=== PATIENT | female | born 1995 | race Caucasian/White ===

== ENCOUNTER 2023-03-18 15:07 | Outpatient (CLI) | payer OTHER, SELFPAY ==
[2023-03-18 15:29] VITALS: BP 134/91; PULSE 68; RESP 16; TEMP 36.7
[2023-03-18 15:44] VITALS: BP 146/84; PULSE 78
[2023-03-18 15:59] VITALS: BP 144/95; PULSE 86
[2023-03-18] MEDS: ACETAMINOPHEN 500 MG TABLET 1000 MG PO (16:10)
[2023-03-18] MEDS: 0.45 % SODIUM CHLORIDE 1000 ML 1,000 ML 500 ML IV (16:18)
[2023-03-18 16:26] LABS: Hematocrit 27.5 % (33.0-51.0); Hemoglobin* 8.7 gm/dL (12.0-16.0); Mean Corpuscular HGB Conc 32 gm/dL (32-36); Mean Corpuscular Hemoglobin 26 pg (26-34); Mean Corpuscular Volume 83 fL (80-100); Platelet Count* 340 K/uL (140-440); Red Blood Count 3.31 m/uL (4.00-5.20); White Blood Count* 17.85 K/uL (4.50-11.00)
[2023-03-18 16:31] LABS: Slide Review Reflex No
[2023-03-18 16:40] LABS: Alanine Aminotransferase* 15 U/L (4-35); Aspartate Amino Transferase* 31 U/L (12-35); Blood Urea Nitrogen* 5 mg/dL (5-24); Creatinine* 0.5 mg/dL (0.5-1.5); Estimated Glomerular Filt Rate 133 ml/min
[2023-03-18 17:16] VITALS: BP 137/90; PULSE 71
[2023-03-18 17:30] VITALS: BP 142/95; PULSE 71
--- NOTE | 2023-03-18 19:02 | PC.OBNST ---
NST Note NST Note Start: 03/18/23 15:31 Freq: ONCE Status: Active Protocol: Document 03/18/23 18:30 STEVIE (Rec: 03/18/23 19:01 STEVIE [id number]) NST Note 1 Para (# of births) 0 EDC 04/19/23 Gestational Age In Weeks & Days 35 Weeks & 3 Days High Risk Factors High Blood Pressure - Gestational Patient Presented with Complaint(s) of Headache,Other Other Complaints Elevated blood pressures at home Reactive Yes Appropriate for Gestational Age Yes JUSTINE Hui RNC Date 03/18/23 Reactive Yes Appropriate for Gestational Age Yes JUSTINE Holloway RNC Date 03/18/23 OB NST charge Yes Complete NST Note via Write Note Yes The provider's electronic signature indicates the NST is reactive/appropriate for gestational age. *Note to provider: If an addendum is required, open the patient's chart and click on the note under the Nurse/Allied Health tab.
[2023-03-19 14:14] LABS: Strep B DNA Probe Negative (Negative); Strep B Susceptibility Needed? No
== END 2023-03-18 18:45 | disposition home or self-care (01) ==
LOC: OB OUT 15:12 → OB 15:13
PROVIDERS: PCP Family Medicine; Visit Provider Family Medicine
DX: O13.3 Gestational [pregnancy-induced] hypertension without significant proteinuria, third trimester (principal); Z3A.35 35 weeks gestation of pregnancy
CPT/HCPCS: 36415; 59025; 82565; 84450; 84460; 84520; 85027; 87081; 87653; 99213; A9270

== ENCOUNTER 2023-03-28 17:11 | Inpatient (IN) | payer OTHER, SELFPAY ==
[2023-03-28 17:21] VITALS: PULSE 88; O2SAT 98
[2023-03-28 17:23] VITALS: RESP 16; TEMP 37.2
[2023-03-28 17:34] VITALS: BP 142/86; PULSE 81
[2023-03-28 17:44] VITALS: BP 140/88; PULSE 80
[2023-03-28 17:46] VITALS: BMI 30.4
[2023-03-28 18:25] LABS: Amnisure Rom* Negative
--- NOTE | 2023-03-28 18:42 | PM.OBHPLI ---
OB - H&P: HPI Labor/Induction History of Present Illness Time Seen by Provider: 18:30 Date Seen: 03/28/23 Chief Complaint: The patient is a 27 year old 1 para 0 at 36 6/7 weeks gestation by LMP c/w 9wk US, who presents for induction for preeclampsia. Chief complaint: OB IN : 1 Para: 0 Date of last menstrual period: 07/13/22 Estimated date of delivery: 04/19/23 Gestational age based on last menstrual period: 36 Indications for induction: pre-eclampsia Narrative: Tosin Leung is a 27 year old 1 para 0 at 36 6/7 weeks gestation by LMP c/w 9wk US, who presents for induction for preeclampsia. Preeclampsia diagnosed around 35wks. Has been getting biweekly BPP, labs and office visits. BP's at home 140-150's/90's. No headache. No ctxs. occ tightening. No gush of fluid but noticed underwear little wet at times last couple days. not sure if discharge. no bleeding. +FM. +edema, better then when was working. History of Present Dating criteria: based on LMP care: good care Ultrasounds: normal mid trimester US complications comment: +covid 01/16/23, followup growth US wnl. Labs Blood type: A (+) positive Rubella: immune RPR/VDLR: nonreactive GBS status: negative HBsAG: negative Meds Home Medications and Allergies Allergies Allergy/AdvReac Type Severity Reaction Status Date / Time CT contrast dye Allergy Severe Anaphylaxis Uncoded 03/18/23 15:42 OB - H&P: Exam Physical Exam: Vital signs: Temp Pulse Resp BP Pulse Ox 99 F 80 16 140/88 H 98 03/28/23 17:23 03/28/23 17:44 03/28/23 17:23 03/28/23 17:44 03/28/23 17:21 Constitutional: Constitutional: no acute distress and cooperative Routine HEENT Exam: Head: Present normal inspection Eye: Present normal appearance Routine Respiratory Exam: Respiratory: Present CTA bilaterally; Absent crackles or rales Routine Cardiovascular Exam: Cardiovascular: RRR Detailed Labor and Delivery Exam: Patient Gravid: Yes Dilation (cm): 1 Effacement (%): 70 Cervix position: posterior Consistency: medium Fetus (Single): Station: -3 Amniotic Membrane Status: intact Heart Rate Baseline: 130 Monitor Accelerations: Present Monitor Decelerations: None Senior Care Variability: Moderate (6-25) Routine Extremities Exam: Extremities: Present pedal edema (1-2+ nonpitting edema) Routine Neurological Exam: Comments: 2/4 DTR's, no clonus OB - Problem Based A/P Additional Plan (1) Preeclampsia: Status: Acute (2) Term : Status: Acute Plan -preeclamptic labs on admit -discussed induction and various techniques and variability in induction courses. Cook catheter placed. Low dose pitocin protocol later tonight. -known GBS negative. -hx genital HSV in past, no outbreaks with . no current lesions. -on venlafaxine, will continue. Delivery/Labor/Induction Plan Plan: induction Induction method: Intracervical balloon catheter
[2023-03-28 18:46] LABS: Basophils Percent Auto 0.3 % (0.0-3.0); Eosinophils Percent Auto 0.5 % (0.0-7.0); Hematocrit 29.4 % (33.0-51.0); Hemoglobin* 9.1 gm/dL (12.0-16.0); Immature Granulocytes Pct Auto 1.9 %; Lymphocytes Percent Auto 19.5 % (20-44); Mean Corpuscular HGB Conc 31 gm/dL (32-36); Mean Corpuscular Hemoglobin 27 pg (26-34); Mean Corpuscular Volume 89 fL (80-100); Monocytes Percent Auto 7.5 % (0.0-11.0); Neutrophils Percent Auto 70.3 % (42.0-72.0); Platelet Count* 214 K/uL (140-440); RDW Coefficient of Variation % 21.7 % (11.5-15.5); Red Blood Count 3.32 m/uL (4.00-5.20)
[2023-03-28 18:48] LABS: Slide Review Reflex No
[2023-03-28 19:06] LABS: Alanine Aminotransferase* 16 U/L (4-35); Aspartate Amino Transferase* 30 U/L (12-35); Blood Urea Nitrogen* 7 mg/dL (5-24); Creatinine* 0.5 mg/dL (0.5-1.5); Est. Creatinine Clearance* 142.28; Estimated Glomerular Filt Rate 133 ml/min
[2023-03-28 19:16] VITALS: BP 138/91; PULSE 68; PULSE 70; RESP 16; TEMP 37.1; O2SAT 99
[2023-03-28] MEDS: VENLAFAXINE ER 75 MG CAPSULE 150 MG PO (21:22)
[2023-03-28] MEDS: LACTATED RINGERS 1000 ML 1,000 ML 125 ML IV (21:22)
[2023-03-28] MEDS: OXYTOCIN 30 unit/500 ML in NS 30 UNIT/500 ML BAG IVPB (21:24)
[2023-03-28 22:22] VITALS: BP 139/87; PULSE 70; RESP 16; TEMP 36.8
[2023-03-29] VITALS (123 sets, daily range): BP systolic 76–177; BP diastolic 41–120; PULSE 60–111; RESP 16–18; TEMP 36.6–37.1; O2SAT 97–100
[2023-03-29] MEDS: HYDRALAZINE HCL 20 MG/ML inj IVP ×6 (03:00→16:48)
[2023-03-29] MEDS: MAGNESIUM IV 4 GM/100 ML PIGGYBACK IVPB (03:13)
[2023-03-29 06:15] LABS: Alanine Aminotransferase* 18 U/L (4-35); Aspartate Amino Transferase* 46 U/L (12-35); Blood Urea Nitrogen* 6 mg/dL (5-24); Creatinine* 0.5 mg/dL (0.5-1.5); Est. Creatinine Clearance* 142.28; Estimated Glomerular Filt Rate 133 ml/min
[2023-03-29 06:16] LABS: Hematocrit 30.1 % (33.0-51.0); Hemoglobin* 9.5 gm/dL (12.0-16.0); Mean Corpuscular HGB Conc 32 gm/dL (32-36); Mean Corpuscular Hemoglobin 28 pg (26-34); Mean Corpuscular Volume 88 fL (80-100); Platelet Count* 203 K/uL (140-440); Red Blood Count 3.41 m/uL (4.00-5.20)
[2023-03-29 06:17] LABS: Basophils Percent Auto 0.6 % (0.0-3.0); Eosinophils Percent Auto 0.9 % (0.0-7.0); Lymphocytes Percent Auto 26.9 % (20-44); Monocytes Percent Auto 7.2 % (0.0-11.0); Slide Review Reflex No
[2023-03-29] MEDS: LACTATED RINGERS 1000 ML 1,000 ML 75 ML IV (06:41)
--- NOTE | 2023-03-29 06:51 | P.OBPN_ITS ---
Subjective Time Seen by Provider: 06:51 Date Seen: 03/29/23 Narrative: pt developed severe preeclampsia by BP criteria overnight. Required 2 doses hydralazine (has asthma, pulse low 60), magnesium started, labs repeated. This morning reports feeling good overall. says did not sleep much. little headache now, started after mag she says. no vision changes. feels cramping. Pitocin was turned off overnight due to regular contractions and increased BP per RN. Objective Vital Signs: Last Vital Signs Temp 98.7 F 03/29/23 02:10 Pulse 68 03/29/23 06:49 Resp 16 03/29/23 02:10 BP 161/97 H 03/29/23 06:49 Pulse Ox 97 03/29/23 03:23 Pelvic Exam Dilation (cm): 4 Effacement (%): 70 Station: -3 Contractions Monitor mode: External Contraction Frequency: q2-4 Contraction pattern: Regular Assessment Station: -3 Heart Rate Baseline: 120 Correction Variability: Moderate (6-25) Monitor Accelerations: Present Monitor Decelerations: None Plan Plan: G1 at 37wks admitted last night for induction due to preeclampsia, overnight meeting severe preeclampsia due to bp criteria. -continue induction, restart pitocin. -Labs [id number], last labs ALT little elevated from prior but not >2x's normal. continue check [id number]. -treat bps as needed -discussed all above with pt, all ?'s answered.
[2023-03-29] MEDS: ACETAMINOPHEN 500 MG TABLET 1000 MG PO ×3 (07:19→23:56)
[2023-03-29 09:19] LABS: Hematocrit 32.2 % (33.0-51.0); Hemoglobin* 10.3 gm/dL (12.0-16.0); Mean Corpuscular HGB Conc 32 gm/dL (32-36); Mean Corpuscular Hemoglobin 28 pg (26-34); Mean Corpuscular Volume 89 fL (80-100); Platelet Count* 216 K/uL (140-440); Red Blood Count 3.64 m/uL (4.00-5.20); White Blood Count* 14.86 K/uL (4.50-11.00)
[2023-03-29 09:22] LABS: Slide Review Reflex No
[2023-03-29 09:36] LABS: Alanine Aminotransferase* 40 U/L (4-35); Aspartate Amino Transferase* 42 U/L (12-35); Blood Urea Nitrogen* 5 mg/dL (5-24); Creatinine* 0.5 mg/dL (0.5-1.5); Est. Creatinine Clearance* 142.28; Estimated Glomerular Filt Rate 133 ml/min
--- NOTE | 2023-03-29 13:32 | PM.OBPNL ---
Subjective Time Seen by Provider: 13:12 Date Seen: 03/29/23 Narrative: pt reports mild tightening. no pain. headache resolve but feels like coming back--very mild she says. Objective Vital Signs: Last Vital Signs Temp 98.2 F 03/29/23 11:00 Pulse 88 03/29/23 13:19 Resp 16 03/29/23 02:10 BP 171/91 H 03/29/23 13:19 Pulse Ox 99 03/29/23 07:27 Comments: labs with platelets and creatinine nml. AST last 42 (prev 46), ALT 40 (prev 18) Pelvic Exam Dilation (cm): 5 Effacement (%): 70 Station: -3 Contractions Monitor mode: External Contraction pattern: Irregular Contraction intensity: Mild Pitocin Rate (mU/min): 7 Assessment Assessment: induction ongoing Station: -2 Amniotic Membrane Status: AROM (AROM with clear fluid at 1314) Heart Rate Baseline: 120 Clinical Documentation Spec Variability: Moderate (6-25) Monitor Accelerations: Present Monitor Decelerations: None Plan Plan: Induction at 37wks for preeclampsia, now severe preeclampsia. -Cook overnight. Currently on pitocin. -labs [id number] -on magnesium -hydralazine protocol for BP's in severe range -Discussed AROm and pt in agreement, performed with clear fluid.
[2023-03-29 15:20] LABS: Hemoglobin* 10.4 gm/dL (12.0-16.0); Mean Corpuscular HGB Conc 32 gm/dL (32-36); Mean Corpuscular Hemoglobin 28 pg (26-34); Mean Corpuscular Volume 89 fL (80-100); Platelet Count* 255 K/uL (140-440); Red Blood Count 3.72 m/uL (4.00-5.20); White Blood Count* 16.03 K/uL (4.50-11.00)
[2023-03-29 15:34] LABS: Slide Review Reflex No
[2023-03-29 15:40] LABS: Alanine Aminotransferase* 18 U/L (4-35); Aspartate Amino Transferase* 44 U/L (12-35); Creatinine* 0.4 mg/dL (0.5-1.5); Est. Creatinine Clearance* 177.85; Estimated Glomerular Filt Rate 141 ml/min
[2023-03-29 15:41] LABS: Blood Urea Nitrogen* 4 mg/dL (5-24)
[2023-03-29] MEDS: LACTATED RINGERS 1000 ML 1,000 ML 500 ML IV (16:56)
--- NOTE | 2023-03-29 17:20 | PM.OBPNL ---
Subjective Time Seen by Provider: 16:30 Date Seen: 03/29/23 Narrative: Ctxs stronger and pt requests epidural. Has headache. Objective Vital Signs: Last Vital Signs Temp 98 F 03/29/23 17:04 Pulse 100 03/29/23 17:04 Resp 16 03/29/23 02:10 BP 137/78 03/29/23 17:04 Pulse Ox 99 03/29/23 07:27 Pelvic Exam Comments: 90/0 per RN Contractions Monitor mode: External Contraction pattern: Regular Assessment Assessment: active labor Station: 0 Amniotic Membrane Status: AROM (AROM with clear fluid at 1314) Heart Rate Baseline: 130 Android Platform Developer Variability: Moderate (6-25) Monitor Accelerations: Present Monitor Decelerations: None Plan Plan: Induction for preeclampsia, now severe due to BP -anesthesia notified and will place epidural -labs stable. continue [id number] -on magnesium -treat Bps as needed -continue current
[2023-03-29] MEDS: ONDANSETRON 2 MG/ML inj 4 MG IV (17:41)
[2023-03-29] MEDS: SODIUM CHLORIDE 0.9 % (FLUSH) 10 ML SYRINGE IVF (17:41)
[2023-03-29] MEDS: LIDOCAINE 2% (PF) 5 ML VIAL EPIDURAL (17:52)
[2023-03-29] MEDS: ROPIVACAINE 0.2% 100 ml 100 ML 12 MG EPIDURAL (17:52)
[2023-03-29] MEDS: fentaNYL 250 MCG/5 ML inj 100 MCG EPIDURAL (18:05)
[2023-03-29] MEDS: PHENYLEPHRINE 100 MCG/ML SYRINGE IVP ×3 (18:05→18:25)
--- NOTE | 2023-03-29 18:05 | P.ANBPRC_ITS ---
[facility] Medical History (Updated 03/28/23 @ 18:51 by Mari Sam DO) Anxiety ?F41.9 - Anxiety disorder, unspecified (ICD-10) ADHD ?F90.9 - Attention-deficit hyperactivity disorder, unspecified type (ICD-10) Genital herpes ?A60.00 - Herpesviral infection of urogenital system, unspecified (ICD-10) Family History (Updated 03/28/23 @ 19:43 by Gilma Zabala RN) Other Genital herpes Social History What is your current living situation?: I presently have a place to live Problems where you live: no known problems In the past 12 months, utilities in danger of being shut off: no In past 12 months, lack of transportation kept you from medical appts, meetings, work, or getting things needed for daily living: no In the past 12 mos, have been you worried that your food would run out before you had money to buy more?: never true In the past 12 mos, the food you bought just didn't last and you didn't have money to buy more?: never true Smoking Status: Current some day smoker How often does anyone, including family, friends and others, physically hurt you : never How often does anyone, including family, friends and others, insult or talk down to you: never How often does anyone, including family, friends and others, threaten you with harm: never How often does anyone, including family, friends and others, scream or curse at you: never Meds Home Medications and Allergies Home Medications Medication Instructions Recorded Confirmed Type acyclovir 250 mg 500 mg .Route PRN HSV 03/28/23 03/28/23 History docosahexaenoic acid 200 mg 200 mg PO DAILY 03/28/23 03/28/23 History capsule ( DHA) ferrous sulfate 137 mg (45 mg 140 mg PO DAILY anemia 03/28/23 03/28/23 History iron) tablet,extended release (Slow Fe) venlafaxine 150 mg 150 mg PO QHS 03/28/23 03/28/23 History capsule,extended release 24 hr (Effexor XR) Allergies Allergy/AdvReac Type Severity Reaction Status Date / Time CT contrast dye Allergy Severe Anaphylaxis Uncoded 03/18/23 15:42 Results Labs Labs: Laboratory Results - last 24 hr 03/28/23 03/28/23 03/29/23 18:10 18:28 03:20 WBC 11.80 H 12.70 H RBC 3.32 L 3.41 L Hgb 9.1 L 9.5 L Hct 29.4 L 30.1 L MCV 89 88 MCH 27 28 MCHC 31 L 32 RDW Coeff of Braydon 21.7 H Plt Count 214 203 Neut % (Auto) 70.3 62.0 Lymph % (Auto) 19.5 L 26.9 [place] % (Auto) 7.5 7.2 Eos % (Auto) 0.5 0.9 Baso % (Auto) 0.3 0.6 Neut # (Auto) 8.30 H 7.90 H Lymph # (Auto) 2.30 3.40 H [place] # (Auto) 0.90 0.90 Eos # (Auto) 0.10 0.10 Baso # (Auto) 0.00 0.10 Abs Immat Gran (auto) 0.20 Imm/Tot Granulo (auto) 1.9 BUN 7 6 Creatinine 0.5 0.5 Estimated Creat Clear 142.28 142.28 Estimated GFR 133 133 AST 30 46 H ALT 16 18 Membrane Rupture Negative Blood Type A Positive Antibody Screen NEGATIVE 03/29/23 03/29/23 09:12 15:08 WBC 14.86 H 16.03 H RBC 3.64 L 3.72 L Hgb 10.3 L 10.4 L Hct 32.2 L 33.0 MCV 89 89 MCH 28 28 MCHC 32 32 RDW Coeff of Braydon Plt Count 216 255 Neut % (Auto) Lymph % (Auto) [place] % (Auto) Eos % (Auto) Baso % (Auto) Neut # (Auto) Lymph # (Auto) [place] # (Auto) Eos # (Auto) Baso # (Auto) Abs Immat Gran (auto) Imm/Tot Granulo (auto) BUN 5 4 L Creatinine 0.5 0.4 L Estimated Creat Clear 142.28 177.85 Estimated GFR 133 141 AST 42 H 44 H ALT 40 H 18 Membrane Rupture Blood Type Antibody Screen Vital Signs Vital Signs: Last Vital Signs Temp 98 F 03/29/23 17:04 Pulse 88 03/29/23 18:04 Resp 16 03/29/23 02:10 BP 96/51 L 03/29/23 18:04 Pulse Ox 99 03/29/23 17:57 Weight: 79.288 kg Height: 161.29 cm Anesthesia Procedures Epidural Insertion Patient Location: OB Start Time: 17:30 Stop Time: 18:30 Start Date: 03/29/23 Stop Date: 03/29/23 Reason for Block: primary anesthetic Patient Position: sitting Performed By: Asim Sow Preanesthetic Checklist: IV checked, risks and benefits discussed, surgical consent, monitors and equipment checked, pre-op evaluation, timeout performed and anesthesia consent Prep: chlorhexidine gluconate Monitoring: blood pressure monitoring, dispenser operator, continuous pulse oximetry and heart rate Approach: midline Vertebral Space: lumbar (1-5) Needle Type: Tuohy needle Injection Technique: continuous catheter Needle gauge: 17 Needle Length (cm): 10 cm Needle Insertion Depth (cm): 6 Catheter Gauge: 19 Catheter Type: multi-orifice Catheter at skin depth (cm): 12 Test Dose Result: negative and lidocaine 1.5% with epinephrine 1 to 200,000 Events: other
[2023-03-29] MEDS: ePHEDrine sulfate 5 MG/ML inj 10 MG IVP (18:17)
--- NOTE | 2023-03-29 20:46 | PM.OBPNL ---
Subjective Time Seen by Provider: 20:46 Date Seen: 03/29/23 Narrative: pt resting comfortably. Objective Vital Signs: Last Vital Signs Temp 98.6 F 03/29/23 19:24 Pulse 96 03/29/23 20:32 Resp 18 03/29/23 19:24 BP 114/60 03/29/23 20:32 Pulse Ox 99 03/29/23 18:28 Pelvic Exam Dilation (cm): 5.5 Effacement (%): 90 Station: 0 Comments: OP position with occiput on right. Contractions Monitor mode: External Contraction Frequency: coupling, ctxs q2-4 Contraction pattern: Irregular Pitocin Rate (mU/min): 13 Assessment Assessment: induction ongoing Station: 0 Amniotic Membrane Status: AROM (AROM with clear fluid at 1314) Heart Rate Baseline: 130 Senior Care Variability: Moderate (6-25) Monitor Accelerations: Present Monitor Decelerations: Variable Plan Plan: Prior check by nursing noted 7cm, on my check now seems more like 5cm. +slight caput. OP position. RN to work on positions to help open pelvis. Titrate pitocin as able
[2023-03-30] VITALS (70 sets, daily range): BP systolic 107–163; BP diastolic 58–101; PULSE 92–121; RESP 16–18; TEMP 36.6–38.3; O2SAT 96–98
[2023-03-30 00:41] LABS: Hematocrit 29.9 % (33.0-51.0); Hemoglobin* 9.4 gm/dL (12.0-16.0); Mean Corpuscular HGB Conc 31 gm/dL (32-36); Mean Corpuscular Hemoglobin 28 pg (26-34); Mean Corpuscular Volume 89 fL (80-100); Platelet Count* 207 K/uL (140-440); Red Blood Count 3.38 m/uL (4.00-5.20)
[2023-03-30 00:42] LABS: Slide Review Reflex No
[2023-03-30 00:51] LABS: Alanine Aminotransferase* 17 U/L (4-35); Aspartate Amino Transferase* 30 U/L (12-35); Creatinine* 0.5 mg/dL (0.5-1.5); Est. Creatinine Clearance* 142.28; Estimated Glomerular Filt Rate 133 ml/min
--- NOTE | 2023-03-30 00:51 | PM.OBPNL ---
Subjective Time Seen by Provider: 00:45 Date Seen: 03/30/23 Narrative: Pt comfortable, feels some pressure at times. Objective Vital Signs: Last Vital Signs Temp 98.4 F 03/29/23 23:42 Pulse 109 H 03/30/23 00:48 Resp 18 03/29/23 23:42 BP 138/72 03/30/23 00:48 Pulse Ox 99 03/29/23 18:28 Comments: platelets and creatinine wnl, AST = 30 (down from 44), ALT 17 (18) Pelvic Exam Dilation (cm): 5.5 Effacement (%): 90 Station: 0 Comments: position OP Contractions Monitor mode: External Contraction Frequency: 2-4min Contraction pattern: Irregular Pitocin Rate (mU/min): 13 Assessment Assessment: induction ongoing Station: 0 Amniotic Membrane Status: AROM (AROM with clear fluid at 1314) Heart Rate Baseline: 120 Assistant Auditor Variability: Moderate (6-25) Monitor Accelerations: Present Monitor Decelerations: Variable Plan Plan: Severe preeclampsia -on magnesium -labs [id number], most recent wnl -induction ongoing as remains 5cm, IUPC placed to help titrate pitocin.
[2023-03-30 00:52] LABS: Blood Urea Nitrogen* 4 mg/dL (5-24)
[2023-03-30] MEDS: ROPIVACAINE 0.2% 100 ml 100 ML 12 MG EPIDURAL (01:43)
--- NOTE | 2023-03-30 05:18 | PM.OBPNL ---
Subjective Time Seen by Provider: 05:18 Date Seen: 03/30/23 Narrative: pt feeling more pressure. No headache. has gotten some rest. Objective Vital Signs: Last Vital Signs Temp 98.7 F 03/30/23 03:53 Pulse 101 H 03/30/23 05:17 Resp 18 03/30/23 03:53 BP 128/71 03/30/23 05:17 Pulse Ox 99 03/29/23 18:28 Pelvic Exam Dilation (cm): 7.0 Effacement (%): 100 Station: +2 Comments: ROP position palpated Contractions Monitor mode: Internal Contraction Frequency: q2-4 Contraction pattern: Irregular Pitocin Rate (mU/min): 25 Assessment Assessment: active labor Station: 0 Amniotic Membrane Status: AROM (AROM with clear fluid at 1314) Heart Rate Baseline: 120 Shelter Variability: Moderate (6-25) Monitor Accelerations: Present Monitor Decelerations: Variable Plan Plan: Induction at 37wks for severe preeclampsia -on magnesium -labs [id number] -cervix now with significant change and in active labor. Continue current. -Reviewed OP position again with pt and how this can affect labor. Currently making progress, plan continue towards vaginal delivery. Pt in agreement with plan. All ?'s answered. -discussed with RN plan for TXA at delivery as higher risk for PPH with magnesium and prolonged pitocin.
[2023-03-30 06:30] LABS: Hematocrit 30.4 % (33.0-51.0); Hemoglobin* 9.5 gm/dL (12.0-16.0); Mean Corpuscular HGB Conc 31 gm/dL (32-36); Mean Corpuscular Hemoglobin 28 pg (26-34); Mean Corpuscular Volume 88 fL (80-100); Platelet Count* 228 K/uL (140-440); Red Blood Count 3.46 m/uL (4.00-5.20); White Blood Count* 17.91 K/uL (4.50-11.00)
[2023-03-30 06:42] LABS: Slide Review Reflex No
[2023-03-30 06:54] LABS: Alanine Aminotransferase* 17 U/L (4-35); Aspartate Amino Transferase* 29 U/L (12-35); Blood Urea Nitrogen* 3 mg/dL (5-24); Creatinine* 0.5 mg/dL (0.5-1.5); Est. Creatinine Clearance* 142.28; Estimated Glomerular Filt Rate 133 ml/min
[2023-03-30 07:07] LABS: Magnesium* 5.7 mg/dL (1.5-2.6)
[2023-03-30] MEDS: miSOPROStoL 800 MCG/4 TABLET PR (08:46)
--- NOTE | 2023-03-30 09:16 | W.PM.OBVAGDE ---
OB Procedure Vag Delivery Mother Details Mother Details: The patient is a 27 year-old admitted on 03/28/23 at 36 6/7 Weeks gestation for cervical ripening/induction due to preeclampsia.? Cervical exam on admission was 1/ cm/70 % effaced/-3 station with membranes intact in vertex presentation.? Contractions were every 10 minutes.? heart rate demonstrated baseline 130 bpm with moderate variability, + accelerations, - decelerations; a category 1 tracing.?Cook catheter was placed, low dose pitocin was started overnight per protocol. Met criteria for severe preeclampsia so magnesium started overnight. Cook removed in morning and 5cm. Pitocin protocol. AROM occurred at 1341 with clear fluid. ? Labor Analgesia:? Epidural ? Pitocin:? yes ? Labor onset:? ay 505 ? Complete:? 0606 ? Pushing:? 0618 ? heart tones during second stage were 130's with decels with pushing. ? was in OP position through labor and majority of pushing and then turned and did deliver OA. At 0823 a viable female infant delivered in vertex presentation over intact perineum via spontaneous vaginal delivery.? was placed on maternal abdomen.? Cord was clamped and cut after a 60 second delay.? Nose and mouth were bulb suctioned.? then taken to warmers as decreased respiratory effort and heart rate decreased. Infant weight pending.? at 1 minute 4 and 7 at 5 minutes and 9 at 10min.? Shoulder dystocia: no.? Nuchal cord: no. ? Active management placenta performed. Pitocin and TXA given at delivery infant. Placenta delivered spontaneously and complete at 0836 with a 3 vessel cord. Some atony was noted during initial course and RN massaged fundus and cytotec was given (200SL, 600 rectal). Fundus became firm. ? Mother and infant were stable after delivery. ? Lacerations:? left lateral labial with vaginal side wall extension, repaired with 3-0vicryl. ? Blood loss: 375 mL. Blood loss measurement type: QBL ? Sponge and needles counts are correct. : 1 Weeks Gestation: 37 Admission Date: 03/28/23 Additional Details Amniotic Membrane Status: AROM Amniotic Membrane Rupture Date: 03/30/23 Amniotic Membrane Rupture Time: 13:14 Amniotic Membrane Fluid Description: Clear Analgesia/Anesthesia Type: Epidural Waterbirth: No Pitcoin: Yes Intrapartal Events: Labor Induction (for preeclampsia, met criteria for severe preeclampsia first night induction) Induction Method: Intracervical balloon catheter, per pitocin protocol and AROM Labor Onset: 05:05 Complete: 06:06 Pushin:18 Heart: heart tones during second stage were [] Delivery Details Delivery Date: 03/30/23 Delivery Time: 08:23 Route of delivery: Infant Gender: Female Delivery Details: Delivered over [intact perineum] via [spontaneous] vaginal delivery. Infant was placed on maternal abdomen.? Cord was clamped and cut after a 30-60 second delay. Nose and mouth were bulb suctioned.? weight pending. Event Summary Status: Mother and were stable after delivery.
[2023-03-30] MEDS: NIFEdipine 30 MG TAB.ER.24 60 MG PO (10:00)
[2023-03-30] MEDS: CLINDAMYCIN 900 MG/50 ML-D5W 900 MG/50 ML PIGGYBACK 100 MG IVPB ×2 (10:47→18:32)
[2023-03-30] MEDS: GENTAMICIN 325 MG in 0.9 % SODIUM CHLORIDE 100 ml 100 ML 108.13 MG IVPB (11:22)
[2023-03-30 12:33] LABS: Hematocrit 33.2 % (33.0-51.0); Hemoglobin* 10.6 gm/dL (12.0-16.0); Mean Corpuscular HGB Conc 32 gm/dL (32-36); Mean Corpuscular Hemoglobin 28 pg (26-34); Mean Corpuscular Volume 88 fL (80-100); Platelet Count* 296 K/uL (140-440); Red Blood Count 3.77 m/uL (4.00-5.20); White Blood Count* 24.96 K/uL (4.50-11.00)
[2023-03-30] MEDS: IBUPROFEN 600 MG TABLET PO ×2 (12:37→19:41)
[2023-03-30 12:39] LABS: Slide Review Reflex No
[2023-03-30 12:49] LABS: Alanine Aminotransferase* 21 U/L (4-35); Aspartate Amino Transferase* 40 U/L (12-35); Blood Urea Nitrogen* 3 mg/dL (5-24); Creatinine* 0.7 mg/dL (0.5-1.5); Est. Creatinine Clearance* 101.63; Estimated Glomerular Filt Rate 123 ml/min
[2023-03-30 12:55] LABS: Magnesium* 6.3 mg/dL (1.5-2.6)
[2023-03-30] MEDS: NIFEdipine 30 MG TAB.ER.24 PO (14:47)
[2023-03-30] MEDS: HYDRALAZINE 10 MG TABLET PO ×2 (15:23→20:40)
[2023-03-30] MEDS: ACETAMINOPHEN 500 MG TABLET 1000 MG PO ×2 (15:23→22:39)
[2023-03-30] MEDS: LABETALOL HCL 5 MG/ML inj IVP (18:32)
[2023-03-30 18:57] LABS: Hematocrit 30.2 % (33.0-51.0); Hemoglobin* 9.6 gm/dL (12.0-16.0); Mean Corpuscular HGB Conc 32 gm/dL (32-36); Mean Corpuscular Hemoglobin 28 pg (26-34); Mean Corpuscular Volume 89 fL (80-100); Platelet Count* 236 K/uL (140-440)
[2023-03-30 19:04] LABS: Slide Review Reflex No
[2023-03-30] MEDS: LACTATED RINGERS 1000 ML 1,000 ML 75 ML IV (19:08)
[2023-03-30 19:33] LABS: Alanine Aminotransferase* 17 U/L (4-35); Aspartate Amino Transferase* 45 U/L (12-35); Blood Urea Nitrogen* 5 mg/dL (5-24); Creatinine* 0.7 mg/dL (0.5-1.5); Est. Creatinine Clearance* 101.63; Estimated Glomerular Filt Rate 123 ml/min
[2023-03-30] MEDS: VENLAFAXINE ER 75 MG CAPSULE 150 MG PO (20:40)
[2023-03-31] VITALS (10 sets, daily range): BP systolic 117–146; BP diastolic 73–89; PULSE 78–104; RESP 16; TEMP 36.3–36.8; O2SAT 96–97
[2023-03-31 00:33] LABS: Hematocrit 29.1 % (33.0-51.0); Hemoglobin* 9.2 gm/dL (12.0-16.0); Mean Corpuscular HGB Conc 32 gm/dL (32-36); Mean Corpuscular Hemoglobin 28 pg (26-34); Mean Corpuscular Volume 89 fL (80-100); Platelet Count* 243 K/uL (140-440); Red Blood Count 3.27 m/uL (4.00-5.20); White Blood Count* 19.22 K/uL (4.50-11.00)
[2023-03-31 00:36] LABS: Slide Review Reflex No
[2023-03-31 01:09] LABS: Creatinine* 0.7 mg/dL (0.5-1.5); Est. Creatinine Clearance* 101.63; Estimated Glomerular Filt Rate 123 ml/min
[2023-03-31 01:10] LABS: Alanine Aminotransferase* 18 U/L (4-35); Aspartate Amino Transferase* 43 U/L (12-35); Blood Urea Nitrogen* 6 mg/dL (5-24)
[2023-03-31] MEDS: HYDRALAZINE 10 MG TABLET PO (02:30)
[2023-03-31] MEDS: CLINDAMYCIN 900 MG/50 ML-D5W 900 MG/50 ML PIGGYBACK 100 MG IVPB ×3 (02:46→18:31)
[2023-03-31 06:41] LABS: Hematocrit 32.5 % (33.0-51.0); Hemoglobin* 10.1 gm/dL (12.0-16.0); Mean Corpuscular HGB Conc 31 gm/dL (32-36); Mean Corpuscular Hemoglobin 28 pg (26-34); Mean Corpuscular Volume 89 fL (80-100); Platelet Count* 250 K/uL (140-440); Red Blood Count 3.64 m/uL (4.00-5.20); White Blood Count* 20.98 K/uL (4.50-11.00)
[2023-03-31 06:43] LABS: Slide Review Reflex No
[2023-03-31 07:01] LABS: Creatinine* 0.5 mg/dL (0.5-1.5); Est. Creatinine Clearance* 142.28; Estimated Glomerular Filt Rate 133 ml/min
[2023-03-31 07:02] LABS: Alanine Aminotransferase* 20 U/L (4-35); Aspartate Amino Transferase* 51 U/L (12-35); Blood Urea Nitrogen* 4 mg/dL (5-24)
[2023-03-31] MEDS: IBUPROFEN 600 MG TABLET PO ×2 (08:00→18:38)
--- NOTE | 2023-03-31 08:05 | PM.OBPNVD1 ---
OB - PN:Subj Subjective Time Seen by Provider: 08:05 Date Seen: 03/31/23 Patient comments OB post-: pain well controlled and tolerating diet status: bottle and Narrative: Baby is not feeding well, continuing to work on feeding plan. Mom has had minimal bleeding. Does have a lot of cramping/pelvic pain. No significant headache, vision changes, RUQ pain. OB - PN: Obj Exam Physical Exam: Vital signs: Temp Pulse Resp BP Pulse Ox O2 Del Method 97.8 F 84 16 142/89 H 96 Room Air 03/31/23 07:46 03/31/23 07:46 03/31/23 07:46 03/31/23 07:46 03/31/23 07:46 03/31/23 07:46 Constitutional: Constitutional: no acute distress Routine HEENT Exam: Head: Present atraumatic and normal inspection Routine Neck Exam: Neck: Present full ROM Routine Respiratory Exam: Respiratory: Present CTA bilaterally; Absent crackles or rales Routine Cardiovascular Exam: Cardiovascular: Present RRR, S1 and S2; Absent murmur Routine Abdominal Exam: Fundus: Present firm Comments: Tenderness of fundus Routine Neurological Exam: Neurological: Present alert and oriented X3 OB - PN: Obj Data Labs Labs: Laboratory Results - last 24 hr 03/30/23 03/30/23 03/31/23 12:27 18:46 00:29 WBC 24.96 H 20.10 H 19.22 H RBC 3.77 L 3.40 L 3.27 L Hgb 10.6 L 9.6 L 9.2 L Hct 33.2 30.2 L 29.1 L MCV 88 89 89 MCH 28 28 28 MCHC 32 32 32 Plt Count 296 236 243 BUN 3 L 5 6 Creatinine 0.7 0.7 0.7 Estimated Creat Clear 101.63 101.63 101.63 Estimated GFR 123 123 123 Magnesium 6.3 H* AST 40 H 45 H 43 H ALT 21 17 18 03/31/23 03/31/23 06:22 06:22 WBC 20.98 H RBC 3.64 L Hgb Cancelled 10.1 L Hct 32.5 L MCV 89 MCH 28 MCHC 31 L Plt Count 250 BUN 4 L Creatinine 0.5 Estimated Creat Clear 142.28 Estimated GFR 133 Magnesium AST 51 H ALT 20 OB - PN: A/P Delivery Assessment and Plan (1) Preeclampsia: Problem details: Severe preeclampsia based on bp readings. Status: Acute Assessment and Plan: - mag off today after 24 hours post-delivery - increase hydralazine to 20 mg qid - nifedipine 90 mg daily Goal BP <135/85 - LFTs increased today, will recheck again in 6 hours. (2) Term : Status: Acute (3) endometritis: Problem details: fever of 100.9 post delivery Status: Acute Assessment and Plan: - started on clindamycin and gentamycin. still has tender uterus/fundus today, thought WBC count improving and no fevers x 24 hours - Will continue IV abx x 48 hours given patient will still be in hospital (an additional 24 hours from now) - Please call with any fevers. Plan day: 1 Plan: routine care
[2023-03-31] MEDS: NIFEdipine 30 MG TAB.ER.24 90 MG PO (08:34)
[2023-03-31] MEDS: HYDRALAZINE 10 MG TABLET 20 MG PO ×4 (08:35→23:11)
[2023-03-31] MEDS: DOCUSATE SODIUM 100 MG CAPSULE PO (08:35)
[2023-03-31] MEDS: FERROUS SULFATE 325 MG TABLET PO (08:35)
--- NOTE | 2023-03-31 10:08 | PM.ANPOST ---
Post Anesthesia Note Post Anesthesia Note Patient seen: Inpatient Respiratory Status: adequate Cardiovascular Status: adequate Mental Status: baseline Pain: adequate Temp: baseline Anesthetic awareness: N/A Complications: none Follow care: none
[2023-03-31] MEDS: LACTATED RINGERS 1000 ML 1,000 ML 75 ML IV (10:54)
[2023-03-31] MEDS: GENTAMICIN 325 MG in 0.9 % SODIUM CHLORIDE 100 ml 100 ML 108.13 MG IVPB (11:45)
[2023-03-31 12:25] LABS: Hematocrit 29.7 % (33.0-51.0); Hemoglobin* 9.4 gm/dL (12.0-16.0); Mean Corpuscular HGB Conc 32 gm/dL (32-36); Mean Corpuscular Hemoglobin 28 pg (26-34); Mean Corpuscular Volume 90 fL (80-100); Platelet Count* 223 K/uL (140-440); Red Blood Count 3.31 m/uL (4.00-5.20); White Blood Count* 17.28 K/uL (4.50-11.00)
[2023-03-31 12:34] LABS: Slide Review Reflex No
[2023-03-31 12:43] LABS: Aspartate Amino Transferase* 49 U/L (12-35); Creatinine* 0.5 mg/dL (0.5-1.5); Est. Creatinine Clearance* 142.28; Estimated Glomerular Filt Rate 133 ml/min
[2023-03-31 12:44] LABS: Alanine Aminotransferase* 20 U/L (4-35); Blood Urea Nitrogen* 5 mg/dL (5-24)
[2023-03-31] MEDS: ACETAMINOPHEN 500 MG TABLET 1000 MG PO ×2 (12:53→20:55)
[2023-03-31] MEDS: LABETALOL HCL 100 MG TABLET PO (19:02)
[2023-03-31] MEDS: VENLAFAXINE ER 75 MG CAPSULE 150 MG PO (20:54)
[2023-04-01 00:01] VITALS: BP 136/76; PULSE 97; RESP 16; TEMP 36.7; O2SAT 97
[2023-04-01] MEDS: CLINDAMYCIN 900 MG/50 ML-D5W 900 MG/50 ML PIGGYBACK 100 MG IVPB ×2 (02:44→10:51)
[2023-04-01 03:53] VITALS: BP 134/79; PULSE 90; RESP 16; TEMP 36.8; O2SAT 98
[2023-04-01 05:37] VITALS: BP 138/81
[2023-04-01] MEDS: HYDRALAZINE 10 MG TABLET 20 MG PO ×2 (05:38→10:53)
[2023-04-01 08:04] VITALS: BP 135/88; PULSE 103; RESP 16; TEMP 36.8; O2SAT 98
[2023-04-01] MEDS: NIFEdipine 30 MG TAB.ER.24 90 MG PO (09:05)
[2023-04-01] MEDS: LABETALOL HCL 100 MG TABLET PO (09:05)
[2023-04-01] MEDS: DOCUSATE SODIUM 100 MG CAPSULE PO (09:06)
[2023-04-01] MEDS: GENTAMICIN 325 MG in 0.9 % SODIUM CHLORIDE 100 ml 100 ML 108.1 MG IVPB (11:50)
[2023-04-01 11:52] VITALS: BP 131/80; PULSE 109; RESP 16; O2SAT 98
[2023-04-01 13:13] VITALS: BP 135/82
--- NOTE | 2023-04-01 13:54 | PM.OBDSVD1 ---
DS: Providers Provider Time Seen by Provider: 07:00 Date Seen: 04/01/23 Date of admission: 03/28/23 17:11 Primary care physician: Mari Sam DO Admitting Clinician: Mari Sam DO Attending Physician on discharge: Ashely Herzog MD Date of Discharge: 04/01/23 DS: Diagnosis Discharge Diagnosis (1) Preeclampsia: Status: Acute Problem details: Severe preeclampsia based on bp readings. Received magnesium until 24 hours post-delivery. Blood pressures managed with Nifedipine XR 90mg daily, hydralazine 20 mg q6h, Labetalol 100 mg bid. Liver function tests improved prior to discharge. (2) endometritis: Status: Acute Problem details: Concern for endometritis based on post delivery fever of 100.9 and fundal tenderness. Received clindamycin and gentamycin IV for >48 hours and had no recurrent fevers. Fundal tenderness resolved. (3) (normal spontaneous vaginal delivery): Status: Acute Problem details: s/p , bleeding and pain controlled. Exam Const: Vital Signs, click to edit/add: Vital Signs - 24 hr 03/31/23 16:00 03/31/23 17:21 03/31/23 20:45 Temperature 98.2 F Pulse Rate [Pulse Oximeter] 104 H Respiratory Rate 16 16 Blood Pressure [Le ft Arm] 143/82 H 133/82 123/80 Pulse Oximetry 97 Oxygen Delivery Me thod Room Air 03/31/23 23:07 04/01/23 00:01 04/01/23 03:53 Temperature 98.0 F 98.2 F Pulse Rate [Pulse Oximeter] 97 90 Respiratory Rate 16 16 Blood Pressure [Le ft Arm] 117/78 136/76 134/79 Pulse Oximetry 97 98 Oxygen Delivery Me thod Room Air Room Air 04/01/23 05:37 04/01/23 08:04 04/01/23 11:52 Temperature 98.3 F Pulse Rate [Pulse Oximeter] 103 H 109 H Respiratory Rate 16 16 Blood Pressure [Le ft Arm] 138/81 135/88 131/80 Pulse Oximetry 98 98 Oxygen Delivery Me thod Room Air Room Air 04/01/23 13:13 Temperature Pulse Rate [Pulse Oximeter] Respiratory Rate Blood Pressure [Le ft Arm] 135/82 Pulse Oximetry Oxygen Delivery Me thod Documenting provider has reviewed patient's vital signs: yes Common normals: no apparent distress General appearance: cooperative and comfortable Orientation/consciousness: Yes awake and Yes oriented to person Neck & C-Spine: Cervical spine: other Resp: Common normals: normal respiratory effort Cardio: Common normals: regular rate, regular rhythm and no murmurs Rate: regular rate Rhythm: regular rhythm GI: Common normals: soft to palpation Palpation: soft : Bimanual exam- vagina & uterus: uterus non-tender Uterus: 3/U and firm Extremity: Other: leg edema improving Neuro: Sensorium/orientation: awake and oriented to person Skin: Common normals: no rashes or lesions noted General skin exam: no rashes or lesions noted OB - DS: Summary Hospital Course Hospital Course: The patient is a 27 year old G 1 P 0 at 37 weeks gestation that was admitted to the Center on 03/28/23 for IOL for preeclampsia. She did develop severe blood pressures requiring magnesium and several doses of IV hydralazine during labor. She had an uncomplicated vaginal delivery. She delivered a viable female infant. She is bottle feeding (both expressed breast milk and formula). patient had fever of 100.9 and fundal tenderness concerning for endometritis. IV clindamycin and gentamycin were started. No further fevers and patient's fundal tenderness resolved. She required 3 antihypertensives to control her blood pressure. Will be discharged on 90 mg of Nifedipine XR, 20 mg hydralazine q6h and 100 mg labetalol bid. Patient had difficulty latching and has been bottling and pumping. Peripartum Data delivery method: Vaginal complications: pelvic infection and uterine atony (received TXA, Pitocin and cytotec) [place] Gender: Female Infant Discharge Plan: Home Status at Discharge Functional status at discharge: independent ambulation Overall status at discharge: patient is back to baseline Time Spent with Patient Time attestation: Total time spent providing and/or coordinating discharge services: Time spent: Greater than 30 minutes Discharge Plan Discharge Disposition: Home, Self-Care Date of Admission: 03/28/23 17:11 Attending Provider on Discharge: Ashely Herzog Primary Care Provider: Mari Sam Condition: Improved Anticipated Discharge Date/Time: 04/01/23 13:12 Discharge Medications: New nifedipine 30 mg Tablet Extended Release 24hr 90 mg PO DAILY Qty: 90 0RF hydralazine 10 mg Tablet 20 mg PO Q6H Qty: 90 0RF labetalol 100 mg Tablet 100 mg PO BID Qty: 60 0RF Continued acyclovir 250 mg 500 mg 500 mg .Route PRN venlafaxine [Effexor XR] 150 mg capsule,extended release 24hr 150 mg PO QHS DHA 200 mg capsule 200 mg PO DAILY Rx Instructions: daily Slow Fe 137 mg (45 mg iron) tablet extended release 140 mg PO DAILY Discharge Orders: Discharge Order (Routine); Ordered 04/01/23 Ordered By: Ashely Herzog Consulting provider completed their portion of the discharge: No Patient Education: OB Vaginal/Bottle Feeding Activity Level: Activity as Tolerated Activity Detail: Pelvic rest x 6 weeks, nothing in the vagina Discharge Diet: Regular Follow Up Appointments: Mari Sam DO [Primary Care Provider] - Forms: MyHealth Info Instructions Discharge Comments: Please follow up Monday at 10:[address] Sam. Call with concerns.
== END 2023-04-01 14:31 | disposition home or self-care (01) | DRG 806 ==
PROVIDERS: Admitting Provider Family Medicine; PCP Family Medicine; Visit Provider Family Medicine
DX: O14.14 Severe pre-eclampsia complicating childbirth (principal); O98.32 Other infections with a predominantly sexual mode of transmission complicating childbirth; Z37.0 Single live birth; O86.12 Endometritis following delivery; O62.2 Other uterine inertia; A60.00 Herpesviral infection of urogenital system, unspecified; O99.344 Other mental disorders complicating childbirth; F41.9 Anxiety disorder, unspecified; F90.0 Attention-deficit hyperactivity disorder, predominantly inattentive type; J45.990 Exercise induced bronchospasm; Z3A.36 36 weeks gestation of pregnancy
CPT/HCPCS: 01967; 36415; 59200; 82565; 82570; 83735; 84112; 84156; 84450; 84460; 84520; 85018; 85025; 85027; 86850; 86900; 86901; 88307; A9270; C1726; J0360; J1580; J2371; J2405; J2795; J3010; J3475; J7120; S0077